=== PATIENT | male | born 1970 | race Caucasian/White ===

== ENCOUNTER 2023-01-18 16:00 | Inpatient (IN) | payer OTHER ==
[~2023-01-18] VITALS: Ht 157.5 cm; Wt 94.8 kg
[2023-01-18 16:17] VITALS: BP 86/49
--- NOTE | 2023-01-18 16:28 | NUR ---
PT W/C ASSISTED TO BED 9.
[2023-01-18] MEDS ORDERED: NACL 0.9% 1,000 ML IV SCH (16:30)
[2023-01-18 17:07] LABS: HEMATOCRIT 49.8 % (36-52); HEMOGLOBIN 16.8 g/dL (12.0-18.0); MEAN CORPUSCULAR HEMOGLOBIN 31 pg (27-31); MEAN CORPUSCULAR HGB CONC 34 g/dL (33-37); MEAN CORPUSCULAR VOLUME 91.7 fL (80-94); PLATELET COUNT (AUTO) 36 K/uL (140-450); RED BLOOD CELL COUNT(AUTO) 5.43 MIL/uL (4.20-6.10); RED CELL DISTRIBUTION WIDTH 16.1 % (11.6-13.7)
[2023-01-18 17:26] LABS: WHITE BLOOD COUNT (AUTO) 31.7 K/uL (4.8-10.8)
[2023-01-18] MEDS ORDERED: VANCOMYCIN 1,000 MG in DEXTROSE 5% 250 ML IV ONE (17:30)
[2023-01-18] MEDS ORDERED: NACL 0.9% 1,000 ML IV ONE (17:30)
[2023-01-18] MEDS ORDERED: PIPERACILLIN/TAZOBACTAM 3.375 GM in DEXTROSE 5% 50 ML IV ONE (17:30)
[2023-01-18] MEDS ORDERED: ONDANSETRON 4 MG/2 ML VIAL IVP ONE (17:45)
[2023-01-18] MEDS ORDERED: MORPHINE SULFATE 4 MG/ML SYR IVP ONE (17:45)
[2023-01-18 17:55] LABS: ALBUMIN 1.8 g/dL (3.4-5.0); CARBON DIOXIDE 17.5 mmol/L (21-32); POTASSIUM 4.5 mmol/L (3.5-5.1); TOTAL BILIRUBIN 13.6 mg/dL (0.0-1.0)
[2023-01-18 18:00] LABS: CREATININE 5.4 mg/dL (0.6-1.3)
[2023-01-18] MEDS ORDERED: IBUP-1842 PO (18:01)
[2023-01-18] MEDS ORDERED: CETI10TA71 PO (18:01)
[2023-01-18 18:10] LABS: EOSINOPHILS % (MANUAL) 1 % (0-4); LYMPHOCYTES % (MANUAL) 2 % (20-46); MYELOCYTES % 1 % (0-0); PROMYELOCYTES % 1 % (0-0)
[2023-01-18] MEDS ORDERED: EPINEPHrine 1 MG/ML AMP IV ONE (18:25)
[2023-01-18 18:29] LABS: PROTHROMBIN TIME 22.2 secs (10.8-13.4)
--- NOTE | 2023-01-18 18:30 | NUR ---
PATIENT PRESENTS TO ED WITH GENERALIZED WEAKNESS. PATIENT IS JAUNDICED AND WITH EPISODES OF FORGETFULNESS. PATIENT NO KNOWN PMH. PATIENT STATES HE HAS NO HX OF DRUG OR ALCOHOL ABUSE. ABDOMEN IS ROUNDED, DISTENDED AND TENDER TO TOUCH. ; PATIENT POSITIONED FOR COMFORT; HOB ELEVATED; BEDRAILS UP X2; BED DOWN. ER MD MADE AWARE OF PT STATUS.
[2023-01-18] MEDS ORDERED: PIPERACILLIN/TAZOBACTAM 3.375 GM VIAL IV ONE (18:39)
--- NOTE | 2023-01-18 19:28 | NUR ---
REPORT GIVEN TO CLAIRE JHAVERI FOR CONTINUITY OF CARE
--- NOTE | 2023-01-18 19:30 | NUR ---
Assumed care of patient. IV fluid bolus infusing at this time. Noted hypotensive
[2023-01-18] MEDS ORDERED: POTASSIUM CHLORIDE 10 MEQ TABER PO PRN (19:45)
[2023-01-18] MEDS ORDERED: MAG SULF 2000 MG/WATER PREMIX 50 ML IV PRN (19:45)
[2023-01-18] MEDS ORDERED: MORPHINE SULFATE 2 MG/ML SYR IVP PRN (19:45)
[2023-01-18] MEDS ORDERED: KCL 20 MEQ/WATER INJ PREMIX 200 ML IV PRN (19:45)
[2023-01-18] MEDS ORDERED: ACETAMINOPHEN 325 MG TAB PO PRN (19:45)
[2023-01-18] MEDS ORDERED: HYDROcodone/APAP 5/325 MG 1 TAB TAB PO PRN (19:45)
[2023-01-18] MEDS ORDERED: VANCOMYCIN PER PHARMACY MC PRN (19:45)
[2023-01-18] MEDS ORDERED: MAGNESIUM OXIDE 400 MG TAB PO PRN (19:45)
[2023-01-18] MEDS ORDERED: VANCOMYCIN 1,000 MG VIAL ONE (19:57)
[2023-01-18] MEDS ORDERED: PHYTONADIONE 10 MG/ML AMP SUBQ ONE (20:00)
--- NOTE | 2023-01-18 20:09 | NUR ---
BEDLONGINGS LIST DONE.
[2023-01-18] MEDS: NACL 0.9% 1,000 ML IV SCH (20:34)
[2023-01-18] MEDS ORDERED: NOREPINEPHRINE 4 MG in DEXTROSE 5% 250 ML IV PRN ×2 (20:55→22:05)
[2023-01-18] MEDS ORDERED: NOREPINEPHRINE 4 MG/4 ML VIAL IV ONE (21:39)
--- NOTE | 2023-01-18 22:28 | NUR ---
Contacted Dr. Palomo regarding patient BP trending low, received instructions to start levophed.
--- NOTE | 2023-01-18 22:30 | NUR ---
Report given to Lisa RANGEL for transfer of care
--- NOTE | 2023-01-18 23:00 | NUR ---
Assisting Dr. Bob for central line placement.
--- NOTE | 2023-01-18 23:40 | NUR ---
Central line attempted on left and right IJ by Dr. Duncan but unsuccessful. VSS at this time Pt awake and alert. Gauze placed on site, no active bleeding on both sites.
[2023-01-19] VITALS (26 sets, daily range): BP systolic 55–121; BP diastolic 22–67
[2023-01-19] MEDS ORDERED: PIPERACILLIN/TAZOBACTAM 2.25 GM in DEXTROSE 5% 50 ML IV SCH (01:00)
--- NOTE | 2023-01-19 01:34 | NUR ---
0100: rec'd pt from ER transferred via gurney. a/ox4, denies pain. abd round and distended, gen weakness is noted. pt admitted for acute cholecystisis. Dr. gómez already put admitting orders. For platelet and FFP transfusion. Consent signed. Oriented to unit, room, surroundings and Plan Of Care discussed. Has PIVlines on the RAC and LH both 20g patent and intact. On levophed drip to keep sbp>90. SR. Skin intact. Given partial bath and connected to the nut sifter. Safety and skin protocol on progress. Continue monitor. 0115: started FFP 1 unit, verified with charge machine operator Edna.
[2023-01-19] MEDS ORDERED: PIPERACILLIN/TAZOBACTAM 3.375 GM VIAL IV ONE (02:03)
[2023-01-19] MEDS: NACL 0.9% 1,000 ML IV SCH ×3 (04:35→21:00)
[2023-01-19] MEDS ORDERED: NOREPINEPHRINE 4 MG/4 ML VIAL IV ONE ×2 (06:33→13:40)
--- NOTE | 2023-01-19 07:07 | NUR ---
0300: COMPLETED FFP 1 UNIT 0500: COMPLETED 1 UNIT OF PLATELET NO ALLERGIC REACTION IS NOTED ENDORSED PT TO AM RN VERENA TO ASSUME PLAN OF CARE.
--- NOTE | 2023-01-19 07:28 | NUR ---
ENDORSED PT TO AM CLAIRE CHA TO ASSUME PLAN OF CARE. Addendum: 01/19/23 at 1157 by Agency Nurse CLAIRE Conner RN WRONG PATIENT
--- NOTE | 2023-01-19 07:30 | NUR ---
SBAR REPORT RECEIVED FROM ROBBI RN, ALL CARES ASSUMED. PT RESTLESS IN BED. ON 2L NC O2. LEVOPHED INFUSING PER TITRATION PROTOCOL. BED IN LOW AND LOCKED POSITION. CALL LIGHT WITHIN REACH.
[2023-01-19] MEDS ORDERED: ONDANSETRON 4 MG/2 ML VIAL IVP PRN (08:05)
[2023-01-19] MEDS ORDERED: METOCLOPRAMIDE 10 MG/2 ML INJ VIAL IVP PRN (08:45)
[2023-01-19] MEDS: PANTOPRAZOLE 80 MG in NACL 0.9% 100 ML IVP SCH ×2 (09:00→18:00)
--- NOTE | 2023-01-19 09:06 | NUR ---
Dr. Goodwin notified regarding pt critical condition. New orders made for stat GI consult. Call out to Dr. Turpin for stat consult, no answer, Dr. Goodwin aware and states to call Dr. Byers. Call out to Dr. Byers and informed regarding pt's active bleeding and hematemesis, Dr. Byers states he will see pt later.
[2023-01-19] MEDS ORDERED: PHENYLEPHRINE 10 MG in NACL 0.9% 250 ML IV PRN (09:10)
[2023-01-19] MEDS ORDERED: VASOPRESSIN 20 UNITS/ML VIAL ONE (09:13)
[2023-01-19] MEDS ORDERED: NACL 0.9% 1,000 ML IV SCH ×2 (09:15)
[2023-01-19 09:19] LABS: BASOPHILS # (AUTO) 0.1 K/uL (0.00-0.22); BASOPHILS % (AUTO) 0.3 % (0.0-2.0); HEMOGLOBIN 11.2 g/dL (12.0-18.0)
[2023-01-19 09:27] LABS: EOSINOPHILS # (AUTO) 1.6 K/uL (0-0.4); EOSINOPHILS % (AUTO) 3.7 % (0.0-4.0); HEMATOCRIT 34.6 % (36-52); LYMPHOCYTES # (AUTO) 2.7 K/uL (2.0-11.5); LYMPHOCYTES % (AUTO) 6.2 % (20.5-51.1); MEAN CORPUSCULAR HEMOGLOBIN 30 pg (27-31); MEAN CORPUSCULAR HGB CONC 32 g/dL (33-37); MEAN CORPUSCULAR VOLUME 91.4 fL (80-94); MONOCYTES # (AUTO) 6.7 K/uL (0.8-1.0); MONOCYTES % (AUTO) 15.5 % (1.7-9.3); NEUTROPHILS # (AUTO) 32.4 K/uL (1.8-7.7); NEUTROPHILS % (AUTO) 74.3 % (42.2-75.2); PLATELET COUNT (AUTO) 55 K/uL (140-450); RED BLOOD CELL COUNT(AUTO) 3.78 MIL/uL (4.20-6.10); RED CELL DISTRIBUTION WIDTH 16.2 % (11.6-13.7)
[2023-01-19] MEDS ORDERED: PHENYLEPHRINE 10 MG/ML VIAL ONE ×2 (09:27→13:55)
[2023-01-19] MEDS ORDERED: fentaNYL citrate 1 MG in NACL 0.9% 80 ML IV PRN (09:30)
[2023-01-19] MEDS ORDERED: MIDAZOLAM MDV 50 MG in NACL 0.9% 40 ML IV PRN (09:30)
[2023-01-19 09:46] LABS: WHITE BLOOD COUNT (AUTO) 43.6 K/uL (4.8-10.8)
--- NOTE | 2023-01-19 09:54 | NUR ---
PT INTUBATED BY ER PHYSICIAN WITH A 7.5 ETT SECURED @24 TEETH/GUM. BILATERAL BREATH SOUNDS HEARD ON AUSCULTATION WITH YELLOW COLOR CHANGE ON CO2 DETECTOR. CXR TO BE ORDERED TO CONFIRM PLACEMENT.
--- NOTE | 2023-01-19 10:10 | NUR ---
PATIENT HAS BEEN SCREENED AND CATEGORIZED MODERATE NUTRITION RISK. PATIENT WILL BE SEEN WITHIN 3-5 DAYS OF ADMISSION. / REVIEWED BY MIKE PARSONS RD
[2023-01-19 10:18] LABS: ALBUMIN 1.8 g/dL (3.4-5.0); ANION GAP 24.7 (8-16); POTASSIUM 4.7 mmol/L (3.5-5.1); TOTAL BILIRUBIN 12.6 mg/dL (0.0-1.0)
[2023-01-19 10:24] LABS: CREATININE 5.3 mg/dL (0.6-1.3)
[2023-01-19] MEDS: CALCIUM GLUC 1 GM/50 mL NS BAG 50 ML IV SCH ×6 (11:00→22:57)
[2023-01-19] MEDS: SODIUM BICARBONATE 8.4% 100 MEQ in DEXT 5% / NACL 0.45% 1,000 ML IV SCH ×2 (12:20→22:58)
[2023-01-19] MEDS ORDERED: OCTREOTIDE ACETATE 1.25 MG in NACL 0.9% 250 ML IV SCH (12:25)
[2023-01-19] MEDS ORDERED: EPINEPHrine 1 mg/mL 1 MG in DEXTROSE 5% 250 ML IV PRN (12:25)
[2023-01-19] MEDS: ALBUMIN HUMAN 25% 100 ML IV SCH ×2 (12:33→21:45)
[2023-01-19] MEDS ORDERED: PHYTONADIONE 10 MG/ML AMP IV ONE (12:40)
[2023-01-19] MEDS: metroNIDAZOLE 500 MG/NS PREMIX 100 ML IV SCH ×2 (13:00→21:50)
[2023-01-19] MEDS ORDERED: PHYTONADIONE 10 MG in NACL 0.9% 50 ML IV SCH (13:00)
[2023-01-19] MEDS ORDERED: SODIUM BICARBONATE 8.4% PFS 50 MEQ/50 ML SYR IVP SCH (13:00)
[2023-01-19] MEDS: PIPERACILLIN/TAZOBACTAM 2.25 GM in DEXTROSE 5% 50 ML IV SCH ×2 (13:00→22:00)
--- NOTE | 2023-01-19 13:23 | NUR ---
DC PLANNING PT CURRENTLY INTUBATED, THEREFORE EZEKIEL OUTREACHED TO PTS EMERGENCY CONTACT, TORO TREJO, TO GATHER COLLAT INFO, HOWEVER, NO ANSWER. MESSAGE LEFT REQUESTING A RETURN PHONE CALL.
[2023-01-19] MEDS ORDERED: MIDAZOLAM 5 MG/5 ML VIAL ONE (13:33)
[2023-01-19] MEDS ORDERED: diphenhydrAMINE 50 MG/ML VIAL ONE (13:33)
[2023-01-19] MEDS ORDERED: fentaNYL citrate 0.05 MG/ML VIAL ONE (13:33)
[2023-01-19] MEDS ORDERED: EPINEPHrine PFS 0.1 MG/ML SYR IVP ONE (13:34)
[2023-01-19] MEDS ORDERED: GLUCAGON 1 MG VIAL ONE (13:34)
[2023-01-19] MEDS ORDERED: NALOXONE 0.4 MG/ML VIAL ONE (13:34)
[2023-01-19] MEDS: HYDROCORTISONE NA SUCC 100 MG/2 ML VIAL IV SCH ×3 (14:09→23:41)
--- NOTE | 2023-01-19 14:57 | NUR ---
UPDATED WITH CRITICAL ABG RESULTS NO NEW VENT CHANGES AT THIS TIME. NURSE MADE AWARE. WILL CONTINUE TO MONITOR.
[2023-01-19 16:14] LABS: HEMATOCRIT 24.6 % (36-52); HEMOGLOBIN 7.7 g/dL (12.0-18.0)
[2023-01-19] MEDS ORDERED: EPINEPHrine 1 mg/mL 6 MG in DEXTROSE 5% 250 ML IV PRN (16:50)
[2023-01-19] MEDS: VASOPRESSIN 20 UNITS in NACL 0.9% 250 ML IV SCH (16:52)
[2023-01-19] MEDS: PHENYLEPHRINE 40 MG in NACL 0.9% 250 ML IV PRN ×3 (16:53→20:55)
[2023-01-19] MEDS ORDERED: fentaNYL citrate - 50mL vial 2.5 MG in NACL 0.9% 200 ML IV PRN (16:55)
[2023-01-19] MEDS ORDERED: LACTULOSE 20 GM/30 ML UDC PO SCH (17:00)
--- NOTE | 2023-01-19 17:00 | NUR ---
0800- BLOODY EMESIS, DR PARSONS NOTIFIED AND ORDERED ZOFRAN. 0835- BLOODY EMESIS WITH CLOTS, DR PARSONS NOTIFIED. 2 UNIT PRBC ORDERED AND 2 UNITS TO BE HELD. 0915- BLOODY EMESIS WITH CLOTS. BP DROPPED. DR PARSONS NOTIFIED. VASO AND CINTHIA ORDERED. 0945- BP CSTILL DROPPING. DR PARSONS ORDERED INTUBATION AND CENTRAL LINE PLACEMENT. 1000- INTUBATED BY ER DR DAIGLE. 1015- CENTRAL LINE PLACED BY DR DAIGLE. 1055- ABG RESULTED, NOTIFIED DR PARSONS. ORDERED 2 AMP BICARB AND CONTINUOUS BICARB DRIP. 1230- LEVOPHED, CINTHIA AND VASOPRESSIN DRIPS MAXED OUT. DR PARSONS ORDERED EPI DRIP. 1630- ALL PRESSORS MAXED OUT. THIRD UNIT OF BLOOD BEING ADMINISTERED.
[2023-01-19] MEDS: NOREPINEPHRINE 16 MG in DEXTROSE 5% 250 ML IV PRN (18:05)
[2023-01-19] MEDS: PROPOFOL 1000 MG/100 ML PREMIX 100 ML IV PRN (18:06)
[2023-01-19] MEDS: SODIUM BICARBONATE 8.4% PFS 50 MEQ/50 ML SYR IVP SCH (18:12)
[2023-01-19] MEDS: ERYTHROMYCIN 100 MG in NACL 0.9% 100 ML IV SCH ×2 (18:14→23:40)
--- NOTE | 2023-01-19 19:35 | NUR ---
RECEIVED PT. FROM DAY SHIFT VERENA RANGEL. PT. INTUBATED ON ETT TO VENT A/C VC RATE 22, FIO2 85%, TV 450, PEEP 5 AND O2 SAT 97%. PT. BILATERAL LUNG SOUNDS DIMINISHED. EYES NO REACTION TO LIGHT. CARDIAC RHYTHM SINUS TACHYCARDIA HR 101 ON THE MONITOR. IV TO RIGHT AC 20G PATENT AND INTACT, INFUSING NS AT 10 ML/HR AND NA BICARB AT 100 ML/HR. IV TO LEFT IJ CENTRAL LINE PATENT AND INTACT AND RUNNING PROTONIX 8MG/HR, FENTANYL 1 MCG/KG/HR, PROPOFOL 10 MCG/KG/MIN, EPINEPHRINE 10MCG/MIN,LEVOPHED 30 MCG/MIN, VASOPRESSIN 0.04 U/MIN, NEOSYNEPHRINE 150 MCG/MIN, SANDOSTATIN 10 ML/HR AND NS 120 ML/HR. RECEIVED PT. WITH ONGOING BLOOD TRANSFUSION (3RD UNIT) AT THE RIGHT ARM AC SITE. PER REPORT MD ORDERED A TOTAL OF 4 UNITS TO BE TRANSFUSED DUE TO PT. VOMITTED A HIGH VOLUME OF BLOOD AND HGB 7.7. OGT CLAMPED. [place] CATHETER IN PLACED WITH CLEAR YELLOW URINE WITH SEDIMENTS. SEQUENTIAL COMPRESSION TO BILATERAL LEGS IN PLACED. ON A HEATING BLANKET DUE TO HYPOTHERMIA, TEMP IN THE 93 TO 94. SKIN INTACT. PROVIDED SAFE AND QUIET ENVIRONMENT AND WILL CONT. TO MONITOR.
--- NOTE | 2023-01-19 19:43 | NUR ---
4TH UNIT OF BLOOD TRANSFUSION STARTED AND WILL CONT.TO MONITOR.
[2023-01-19] MEDS ORDERED: CALCIUM GLUC 1 GM/50 mL NS BAG 50 ML IV ONE (21:46)
--- NOTE | 2023-01-19 22:45 | NUR ---
DR. HERNANDEZ MADE ROUNDS AND CHECKED PT. NO NEW ORDER MADE.
[2023-01-20] VITALS: BP 94/45
[2023-01-20] MEDS: SODIUM BICARBONATE 8.4% PFS 50 MEQ/50 ML SYR IVP SCH
[2023-01-20] MEDS: NOREPINEPHRINE 16 MG in DEXTROSE 5% 250 ML IV PRN (00:20)
[2023-01-20 01:00] VITALS: BP 72/31
--- NOTE | 2023-01-20 01:06 | NUR ---
LAB DRAWN CBC.
[2023-01-20 01:10] LABS: BASOPHILS # (AUTO) 0.2 K/uL (0.00-0.22); BASOPHILS % (AUTO) 0.7 % (0.0-2.0); EOSINOPHILS # (AUTO) 0.1 K/uL (0-0.4); EOSINOPHILS % (AUTO) 0.4 % (0.0-4.0); HEMATOCRIT 27.9 % (36-52); HEMOGLOBIN 8.7 g/dL (12.0-18.0); LYMPHOCYTES # (AUTO) 3.4 K/uL (2.0-11.5); LYMPHOCYTES % (AUTO) 12.4 % (20.5-51.1); MEAN CORPUSCULAR HEMOGLOBIN 30 pg (27-31); MEAN CORPUSCULAR HGB CONC 31 g/dL (33-37); MEAN CORPUSCULAR VOLUME 97.9 fL (80-94); MONOCYTES # (AUTO) 2.8 K/uL (0.8-1.0); MONOCYTES % (AUTO) 10.1 % (1.7-9.3); NEUTROPHILS # (AUTO) 20.8 K/uL (1.8-7.7); NEUTROPHILS % (AUTO) 76.4 % (42.2-75.2); PLATELET COUNT (AUTO) 48 K/uL (140-450); RED BLOOD CELL COUNT(AUTO) 2.85 MIL/uL (4.20-6.10); WHITE BLOOD COUNT (AUTO) 27.2 K/uL (4.8-10.8)
[2023-01-20] MEDS: PROPOFOL 1000 MG/100 ML PREMIX 100 ML IV PRN (01:37)
[2023-01-20 02:00] VITALS: BP 84/57
[2023-01-20] MEDS: VASOPRESSIN 20 UNITS in NACL 0.9% 250 ML IV SCH (02:25)
--- NOTE | 2023-01-20 02:57 | NUR ---
PT. HGB 8.7, POST 4 UNITS OF PRBC TRANSFUSION. WILL ENDORSE TO THE NEXT SHIFT.
[2023-01-20 03:00] VITALS: BP 77/30
--- NOTE | 2023-01-20 04:10 | NUR ---
PT. HR STARTED TO SLOW DOWN, IN THE 40'S UNTIL ASYSTOLE AND BP GOING DOWN, SYSTOLIC 50'S AND DIASTOLIC IN THE 30'S AT 0316, REASSESED PT. AND CALLED FOR THE CODE BLUE AT 0317. CODE BLUE TEAM, LEAD BY ARRIVED AND STARTED RESUSCITATION, ACLS APPLIED. DURING THE CODE, NURSING CARTON LETTERING MACHINE OPERATOR EM CALLED THE FAMILY AND SPOKED TO THE SON NARDA MARTINEZ. NARDA STATED TO THE CARTON LETTERING MACHINE OPERATOR THAT THEY ARE GOING TO THE HOSPITAL. PT. AT 0329. SENT MESSAGE TO DR. CHIKIS BARKSDALE AT 0338 THAT PT. TODAY 02/17/23 AT 0329. PT. , TORO AND NARDA (SON) ARRIVED AT 0348 AND PROVIDED THEM ALL THE INFORMATIONS DURING THE CODE AND THE TIME OF PT. EXPIRATION. PT. FAMILY AT THE BEDSIDE AT THIS TIME.
--- NOTE | 2023-01-20 04:30 | NUR ---
ROBBI, CHARGE NURSE TALKED TO THE FAMILY ABOUT MORTUARY AND DAUGHTER STATED THAT THEY DON'T HAVE YET A READY MORTUARY FOR THEIR DAD. PER DAUGHTER THEY WILL DISCUSS IT WITH HER MOM AND THE FAMILY. NO MORTUARY ON FILE YET. WILL ENDORSE TO THE NEXT SHIFT.
--- NOTE | 2023-01-20 04:35 | NUR ---
I CALLED [employer] TO REPORT PT. AND TALKED TO LILIANA AND SHE STATED THAT [employer] WILL CONTACT ME.
--- NOTE | 2023-01-20 04:41 | NUR ---
TRICE FROM FAMILY RESOURCE SPECIALIST CALLED BACK. PROVIDED INFORMATION OF PT. MEDICAL CONDITION AND . FAMILY RESOURCE SPECIALIST RELEASED THE BODY, NOT A FAMILY RESOURCE SPECIALIST CASE AND NO NUMBER PROVIDED.
--- NOTE | 2023-01-20 04:44 | NUR ---
I CALLED [facility], REPORTED PT. AND TALKED TO JAMIE DOW AND STATED THAT HE WILL CALL BACK IN AN HOUR. ALL INFORMATIONS PROVIDED QUESTIONS ASKED BY JAMIE. ENDED UP CALL AT 0510. CASE NUMBER GIVEN: [id number].
--- NOTE | 2023-01-20 05:10 | NUR ---
PATIENT FAMILY AT THE BEDSIDE AND STATED THAT THEY ARE OPEN FOR THE SUGGESTION OF [facility]PROVIDED THEM WITH THE PHONE NUMBER. WILL ENDORSE TO THE DAY SHIFT CHARGE NURSE, CLAIRE CURTIS.
--- NOTE | 2023-01-20 06:46 | NUR ---
FAMILY AT THE BEDSIDE AND MACEY (DTR) STATED THAT THEY DON'T WANT AUTOPSY TO BE DONE TO THEIR DAD. ALSO, THEY CALLED [facility] AND THEY WOULD LIKE THE MORTUARY TO LAST MODEL MAKER THE BODY OF THE PT. I CALLED [facility] AND LEFT A MESSAGE IF WHAT TIME THEY CAN LAST MODEL MAKER THE BODY. WILL WAIT FOR THEIR CALL AND WILL ENDORSE TO THE NEXT SHIFT.
--- NOTE | 2023-01-20 10:50 | NUR ---
[facility] PICKED UP REMAINS. FAMILY AT BEDSIDE.
--- NOTE | 2023-01-26 14:29 | NUR ---
FLOYD FUENTES: WENT TO [facility] PROVIDER PORTAL AND LOOKED UP PATIENT. PATIENT WAS DIS-ENROLLED IN [facility] OF 01/26/2023 SO NO NEED TO MAKE FOLLOW UP APPOINTMENT.
== END 2023-01-20 11:47 | DRG 720 ==
LOC: MED 16:00 → MTU 19:46 → MIC 20:55
PROVIDERS: ADMIT Hospitalist; ATTEND Hospitalist
PROC: 02HV33Z Insertion of Infusion Device into Superior Vena Cava, Percutaneous Approach (ICD-10-PCS; 2023-01-19)
PROC: B548ZZA Ultrasonography of Superior Vena Cava, Guidance (ICD-10-PCS; 2023-01-19)
PROC: 06L38CZ Occlusion of Esophageal Vein with Extraluminal Device, Via Natural or Artificial Opening Endoscopic (ICD-10-PCS; 2023-01-19)
PROC: 30233K1 Transfusion of Nonautologous Frozen Plasma into Peripheral Vein, Percutaneous Approach (ICD-10-PCS; 2023-01-19)
PROC: 30233N1 Transfusion of Nonautologous Red Blood Cells into Peripheral Vein, Percutaneous Approach (ICD-10-PCS; 2023-01-19)
PROC: 30233R1 Transfusion of Nonautologous Platelets into Peripheral Vein, Percutaneous Approach (ICD-10-PCS; 2023-01-19)
PROC: 0BH17EZ Insertion of Endotracheal Airway into Trachea, Via Natural or Artificial Opening (ICD-10-PCS; 2023-01-19)
PROC: 5A1935Z Respiratory Ventilation, Less than 24 Consecutive Hours (ICD-10-PCS; principal; 2023-01-19 18:20)
PROC: 5A12012 Performance of Cardiac Output, Single, Manual (ICD-10-PCS; 2023-01-20)
DX: A41.9 Sepsis, unspecified organism (principal); J96.01 Acute respiratory failure with hypoxia; N17.0 Acute kidney failure with tubular necrosis; R65.21 Severe sepsis with septic shock; R57.8 Other shock; K81.0 Acute cholecystitis; I85.11 Secondary esophageal varices with bleeding; K85.90 Acute pancreatitis without necrosis or infection, unspecified; F10.10 Alcohol abuse, uncomplicated; Y90.9 Presence of alcohol in blood, level not specified; D62 Acute posthemorrhagic anemia; D68.9 Coagulation defect, unspecified; K70.9 Alcoholic liver disease, unspecified; E80.6 Other disorders of bilirubin metabolism; Z20.822 Contact with and (suspected) exposure to COVID-19; I46.9 Cardiac arrest, cause unspecified; K70.30 Alcoholic cirrhosis of liver without ascites; E66.01 Morbid (severe) obesity due to excess calories; Z68.38 Body mass index [BMI] 38.0-38.9, adult
CPT/HCPCS: 31500; 36415; 36600; 71045; 76705; 80053; 82550; 82803; 83605; 83690; 83735; 83880; 84484; 85018; 85025; 85379; 85384; 85610; 85730; 86886; 86900; 86901; 86920; 87040; 87081; 87186; 92950; 93005; 94002; 96365; 96372; 96375; 99291; C9113; G0480; J0171; J0610; J1200; J1364; J1610; J1720; J2250; J2270; J2310; J2354; J2370; J2405; J2543; J2704; J3010; J3370; J3430; J3490; J7030; J7060; P9016; P9017; P9035; P9046; Q0092